=== PATIENT | female | born 1985 | race Native Hawaiian/Other Pacific Islander ===

== ENCOUNTER 2019-08-09 12:19 | Emergency (ER) | payer OTHER ==
[~2019-08-09] VITALS: Ht 154.9 cm; Wt 45.8 kg
[2019-08-09 13:16] VITALS: BP 116/92; TEMP 98.9
== END 2019-08-09 13:16 | disposition home or self-care (01) ==
LOC: ED 12:19
DX: K04.7 Periapical abscess without sinus (principal)
CPT/HCPCS: 96372; 99283; J0696; J1885